=== PATIENT | male | born 1955 | race Caucasian/White ===

== ENCOUNTER → 2022-01-08 | Outpatient (CLI) | payer MEDICARE, OTHER ==
[~2022-01-08] MED LIST: DOXYCYCLINE HY100 M2 PO
== END ==
LOC: ECHO 11:57 → NM 13:00
DX: R06.02 Shortness of breath (principal); R06.00 Dyspnea, unspecified
CPT/HCPCS: 78452; 93017; 93308; A9502; J2785; Q9957